=== PATIENT | female | born 1935 | race Caucasian/White ===

== ENCOUNTER → 2019-11-30 14:38 | Outpatient (CLI) | payer OTHER, SELFPAY ==
--- NOTE | ~2019-11-30 | XR_ITS ---
XR chest 2V 11/30/2019 14:57 Indication: Cough and dyspnea Procedure: 2 view chest Comparison: 09/03/2017 Findings: Heart size normal. No focal air space disease, pulmonary edema, pleural effusion or suspect ed pneumothorax. There is breast asymmetry suggesting left mastectomy. Correlate clinically. The lung s are hyperinflated which is consistent with, but not diagnostic of chronic obstructive pulmonary dis ease. Impression: 1: No acute cardiopulmonary disease. Reviewed, dictated and finalized at location A. Impression: 1: No acute cardiopulmonary disease.
== END ==
PROVIDERS: PCP Physician Assistant; Visit Provider Physician Assistant
DX: R05 Cough (principal)
CPT/HCPCS: 71046

== ENCOUNTER 2020-01-18 20:54 | Inpatient (IN) | payer OTHER, SELFPAY ==
--- NOTE | ~2020-01-18 | XR_ITS ---
EXAMINATION: XR chest 1V portable EXAM DATE: 01/18/2020 22:33 INDICATION: Fall, chest wall pain. TECHNIQUE: Portable AP frontal chest x-ray was obtained. Comparison is made to prior examination from 11/30/2019. FINDINGS: Some chronic hyperinflation. Right middle lobe granulomas, left infrahilar granulomas. The lungs are otherwise clear. There are no pleural effusions. The cardiomediastinal silhouette is with in normal limits. There is no pneumothorax suspected. Mild thoracolumbar scoliosis. IMPRESSION: No acute cardiopulmonary findings. Reviewed, dictated and finalized at location A.
--- NOTE | ~2020-01-18 | XR_ITS ---
EXAMINATION: XR hip LT 2V w AP pelvis EXAM DATE: 01/18/2020 22:34 INDICATION: Fall, left hip fracture. TECHNIQUE: Left hip frontal, crosstable lateral projections for interpretation. Frontal projection pe lvis. There is no prior study for comparison. FINDINGS: There is acute comminuted left hip intertrochanteric fracture with mild medial angulation. Closed, posttraumatic fracture(s). There is overlying soft tissue swelling. Intact right hip arthro plasty. Pelvic ring appears intact. IMPRESSION: 1. Acute comminuted left hip intertrochanteric fracture. Reviewed, dictated and finalized at location A.
--- NOTE | ~2020-01-18 | XR_ITS ---
XR surgery orthopedic 01/19/2020 16:08 Indication: Intraoperative fixation of left femoral fracture with intramedullary felicity Procedure: 4 fluoroscopic images of the left hip/femur. 281 seconds of fluoroscopy. Comparison: 01/18/2020 Findings: Status post intraoperative fixation of comminuted left femoral intertrochanteric fracture w ith dynamic compression screw and intramedullary felicity. Fracture fragments in near-anatomic alignment w ith persistent medial displacement of the lesser trochanter. Impression: 1: Near-anatomic alignment of comminuted left femoral intertrochanteric fracture status post intraope rative fixation. Reviewed, dictated and finalized at location A. Impression: 1: Near-anatomic alignment of comminuted left femoral intertrochanteric fractur e status post intraoperative fixation.
[2020-01-18 20:53] VITALS: BP 129/91; PULSE 80; RESP 16; TEMP 36.7; O2SAT 100
--- NOTE | 2020-01-18 21:04 | ECG_ITS ---
Measurements Intervals [place] Rate: 75 P: 78 RI: 175 QRS: -26 QRSD: 94 T: 72 QT: 359 QTc: 401 Interpretive Statements SINUS RHYTHM DELAYED PRECORDIAL R/S TRANSITION BORDERLINE ECG Electronically Signed On 01-19-2020 7:05:06 CDT by Abel Bustos D.O.
--- NOTE | 2020-01-18 21:10 | ED.FALL ---
HPI - Fall General Chief Complaint: Fall Stated Complaint: fall Time Seen by Provider: 01/18/20 20:55 Source: patient History of Present Illness HPI Narrative: Pt c/o left hip pain after she tripped and fell at home. Denies head, neck, chest, abd, back, or any other extremity pain/injury. complaint: fall Place fall occurred: home Loss of consciousness: none Prolonged down time: no Symptoms prior to fall: none Context: tripped/slipped Severity: severe Severity scale (1-10): 9 Quality: dull Associated symptoms (after fall): denies Related Data Home Medications Medication Instructions Recorded Confirmed Chelated Manganese 10 mg PO DAILY 10/07/19 01/19/20 Chromium 200 mcg PO DAILY 10/07/19 01/19/20 Glucosamine Chondroitin 100 mg PO DAILY 10/07/19 01/19/20 folic acid 1 mg PO DAILY 10/07/19 01/19/20 hydroxychloroquine 200 mg PO DAILY 10/07/19 01/19/20 quetiapine 25 mg PO HS 10/07/19 01/19/20 simvastatin 20 mg PO HS 10/07/19 01/19/20 temazepam 30 mg PO 10/07/19 01/19/20 albuterol sulfate 2 inh INHALATION QID 01/19/20 01/19/20 ascorbic acid (vitamin C) 200 mg PO DAILY 01/19/20 01/19/20 aspirin [Enteric Coated Aspirin] 1 mg PO DAILY 01/19/20 01/19/20 calcium carb and citrate-vitD3 2 tablet PO DAILY 01/19/20 01/19/20 cholestyramine (with sugar) 4 g PO TID 01/19/20 01/19/20 duloxetine 30 mg PO DAILY 01/19/20 01/19/20 magnesium oxide 200 mg PO DAILY 01/19/20 01/19/20 melatonin 10 mg PO HS 01/19/20 01/19/20 jixczcnznvhg-yik-pena-FA-vit K 1 tablet PO DAILY 01/19/20 01/19/20 [Adults Multivitamin] niacin 100 mg PO DAILY 01/19/20 01/19/20 turmeric-turmeric root extract 500 cap PO DAILY 01/19/20 01/19/20 Allergies Allergy/AdvReac Type Severity Reaction Status Date / Time No Known Allergies Allergy Verified 01/18/20 21:06 Review of Systems Review of Systems: All systems reviewed & are unremarkable except as noted in HPI and below Constitutional: Constitutional: Denies body ache(s), Denies chills, Denies excessive sweating, Denies fatigue, Denies fever(s), Denies headache(s), Denies lethargy, Denies malaise, Denies weakness and Denies weight loss Eyes: Eyes: Denies blurry vision, Denies change in vision and Denies loss of vision ENT: Denies dizziness, Denies ear discharge, Denies headache(s), Denies lip swelling, Denies epistaxis, Denies nasal congestion, Denies neck pain, Denies throat swelling and Denies tongue swelling Cardiovascular: Cardiovascular: Denies chest pain, Denies chest pain at rest, Denies chest pain with activity, Denies diaphoresis, Denies rapid heart rate, Denies edema, Denies irregular heart rhythm, Denies lightheadedness, Denies palpitations, Denies dyspnea and Denies dyspnea on exertion Respiratory: Respiratory: Denies chest congestion, Denies cough, Denies hemoptysis, Denies dyspnea and Denies dyspnea on exertion Gastrointestinal: Gastrointestinal: Denies abdominal pain, Denies melena, Denies hematochezia, Denies diarrhea, Denies nausea, Denies vomiting and Denies hematemesis Musculoskeletal: Musculoskeletal: Denies abnormal gait, Denies deformity, Denies limited range of motion, Denies neck pain and Denies numbness Neurologic: Denies Abnormal speech present, Denies abnormal gait, Denies confusion, Denies dizziness, Denies headache(s), Denies focal weakness, Denies loss of vision, Denies numbness, Denies Other visual disturbances, Denies Sensory deficit (Neuro) and Denies weakness Psychiatric: Psychiatric: Denies confusion, Denies depression, Denies auditory hallucinations, Denies homicidal ideation and Denies suicidal ideation Endocrine: Endocrine: Denies cold intolerance, Denies excessive sweating, Denies fatigue, Denies heat intolerance and Denies palpitations Hematologic/Lymphatic: Hematologic/Lymphatic: Denies easy bleeding and Denies easy bruising Allergic/Immunologic: Allergic/Immunologic: Denies lip swelling, Denies throat swelling and Denies tongue swelling PMFSH Past Medical History Medical Hi
[2020-01-18] MEDS: HYDROMORPHONE HCL 1 MG/ML INJ 0.5 MG IV PUSH (21:15)
[2020-01-18] MEDS: LACTATED RINGERS 1,000 ML 125 ML IV CONT (21:15)
--- NOTE | 2020-01-18 21:16 | PC.NURSE ---
50mL Normal saline pulled for Phenergan dilution, however, patient refused Phenergan administration.
[2020-01-18 21:38] LABS: Basophils Percent Auto 0.5 % (0.2-1.2); Eosinophils Absolute Auto 0.4 K/mm3 (0-0.3); Eosinophils Percent Auto 4.9 % (0-4.4); Hematocrit 38.7 % (37.0-47.0); Hemoglobin 12.7 g/dL (12.0-15.0); Immature Granulocyte Absolute 0.06 K/mm3 (0.00-0.031); Immature Granulocyte Percent A 0.7 % (0-0.5); Lymphocytes Absolute Auto 2.31 K/mm3 (0.9-3.2); Lymphocytes Percent Auto 26.4 % (18.3-44.2); Mean Corpuscular HGB Conc 32.8 g/dl (32-36); Mean Corpuscular Hemoglobin 31.4 pg (26-34); Mean Corpuscular Volume 95.8 fl (80-100); Mean Platelet Volume 9.4 fl (7.4-10.4); Monocytes Absolute Auto 0.9 K/mm3 (0.1-0.6); Monocytes Percent Auto 10.4 % (2.6-8.5); Neutrophils Percent Auto 57.1 % (45.5-73.1); Platelet Count Result 213 k/mm3 (150-375); Red Blood Count 4.04 M/mm3 (4.2-5.4); Red Cell Distribution Width 13.3 % (11.5-14.5); White Blood Count 8.8 K/mm3 (4.5-10.0)
[2020-01-18 21:45] VITALS: TEMP 36.7
[2020-01-18 21:49] LABS: Alanine Aminotransferase 20 U/L (4-35); Albumin Level 4.4 g/dL (3.5-5.1); Alkaline Phosphatase 70 U/L (38-126); Aspartate Amino Transferase 40 U/L (14-36); Bilirubin,Total 0.2 mg/dL (0.2-1.3); Blood Urea Nitrogen 13 mg/dL (7-17); Calcium 9.5 mg/dL (8.4-10.2); Carbon Dioxide 30 mmol/L (22-30); Chloride 94 mmol/L (98-107); Estimated Glomerular Filt Rate > 60; Glucose 102 mg/dL (65-105); INR 0.9; Potassium 3.9 mmol/L (3.4-5.0); Prothrombin Time 12.2 Seconds (11.1-14.7); Sodium 130 mmol/L (137-145)
[2020-01-18 21:50] LABS: Partial Thromboplastin Time 30.8 SECONDS (22.3-36.8)
[2020-01-18 22:55] VITALS: BP 129/98; PULSE 80; RESP 14; O2SAT 100
[2020-01-19] VITALS (21 sets, daily range): BP systolic 80–136; BP diastolic 46–75; PULSE 79–121; RESP 14–22; TEMP 36.2–37.1; O2SAT 92–100; BMI 24.5
[2020-01-19] MEDS: HYDROMORPHONE HCL 1 MG/ML INJ 0.5 MG IV PUSH ×4 (00:24→20:26)
--- NOTE | 2020-01-19 02:01 | ADMGEN ---
This patient, Sherri Montes, was admitted to [facility] Surg Room 317-01. Patient/family oriented to hospital policies and general routines including ID bracelet, bed and alarms, visiting hours, pain management, procedures, bathroom and other care routines, personal items, smoking policy, room service/diet, and visiting hours. Valuables list has been completed. Information on how to activate the Rapid Response Team has been discussed. Patient/Family are encouraged to report perceived risks to care and to ask questions if they do not understand what they are told or what they should do.
--- NOTE | 2020-01-19 04:50 | PM.IMHP ---
H&P: HPI History of Present Illness Chief complaint: CLOSED LEFT HIP INTERTROCH FRACTURE Narrative: This is an 84 year old female with Rheumaotid arthritis who presented to the hospital tonight after suffering a fall at home. She states she was walking when suddenly she fell. She denies any head trauma, passing out, or dizziness. The patient immediately could not ambulate. On arrival to the ER she was found to have a left intertrochanteric fracture. She has no other complaints. Ortho has asked that we admit the patient to the hospital and they will evaluate her in the morning. Review of Systems Review of Systems: All systems reviewed & are unremarkable except as noted in HPI and below PMFSH Past Medical History Medical History Anxiety Arthritis Bilateral cataracts Depression Diverticulitis GERD (gastroesophageal reflux disease) Hypercholesteremia IBS (irritable bowel syndrome) Lupus Osteoporosis Pneumonia 2018 Postmenopausal Rectal polyp Rheumatoid arthritis Surgical History Surgical History H/O mastectomy Left breast, with lymph nodes removed Hip joint replacement status Right hip 2010 History of orthopedic surgery Right ankle repair Hx of tonsillectomy Family History Family History Other Unknown family medical history Social History Social History Smoking status: Never smoker Alcohol intake: current Drinks per week: 5 Substance use: never Gender identity (if verbalized by the patient): Female Spiritual care concerns: No Agree to blood products: Yes Meds Home Medications and Allergies Home Medications Medication Instructions Recorded Confirmed Type Chelated Manganese 10 mg PO DAILY 10/07/19 01/19/20 History Chromium 200 mcg PO DAILY 10/07/19 01/19/20 History Glucosamine Chondroitin 100 mg PO DAILY 10/07/19 01/19/20 History fluticasone propionate [Flonase 1 spray NASAL DAILY #15.8 ml 10/07/19 01/19/20 Rx Allergy Relief] folic acid 1 mg PO DAILY 10/07/19 01/19/20 History hydroxychloroquine 200 mg PO QID 10/07/19 01/19/20 History quetiapine 25 mg PO HS 10/07/19 01/19/20 History simvastatin 20 mg PO HS 10/07/19 01/19/20 History temazepam 30 mg PO HS 10/07/19 01/19/20 History albuterol sulfate 2 inh INHALATION QID 01/19/20 01/19/20 History ascorbic acid (vitamin C) 200 mg PO DAILY 01/19/20 01/19/20 History aspirin [Enteric Coated Aspirin] 1 mg PO DAILY 01/19/20 01/19/20 History calcium carb and citrate-vitD3 2 tablet PO DAILY 01/19/20 01/19/20 History cholestyramine (with sugar) 4 g PO TID 01/19/20 01/19/20 History duloxetine 30 mg PO DAILY 01/19/20 01/19/20 History magnesium oxide 200 mg PO DAILY 01/19/20 01/19/20 History melatonin 10 mg PO HS 01/19/20 01/19/20 History unnxfozslbag-cqq-tkwv-FA-vit K 1 tablet PO DAILY 01/19/20 01/19/20 History [Adults Multivitamin] niacin 100 mg PO DAILY 01/19/20 01/19/20 History turmeric-turmeric root extract 500 cap PO DAILY 01/19/20 01/19/20 History Allergies Allergy/AdvReac Type Severity Reaction Status Date / Time No Known Allergies Allergy Verified 01/18/20 21:06 Vital Signs Vital Signs - 24 hr 01/18/20 20:53 01/18/20 21:45 01/18/20 22:55 Temperature 36.7 C 36.7 C Pulse Rate 80 80 Respiratory Rate 16 14 Blood Pressure 129/91 H 129/98 H Pulse Oximetry 100 100 01/19/20 00:16 01/19/20 01:20 Temperature 36.6 C Pulse Rate 80 79 Respiratory Rate 14 16 Blood Pressure 118/66 121/71 Pulse Oximetry 96 96 Exam Const: General: cooperative, no acute distress, alert and awake Nutritional Appearance: well nourished Orientation/consciousness: patient oriented x3 HENMT: Head: normal to inspection General nose exam: Normal external nose present Face and sinus: normal facial exam Mouth: Yes Normal o
[2020-01-19] MEDS: LACTATED RINGERS 1,000 ML 125 ML IV CONT (05:49)
--- NOTE | 2020-01-19 07:38 | PC.NURSE ---
Patient was given Dilaudid IVP 0.5ml at 0558 01/19/2020, scanned med was not saved at that time. Attempted to chart put medication is now discontinued.
[2020-01-19] MEDS: ALBUTEROL SULFATE (*SP) AEROSOL 1 PUFF 2 PUFF INHALATION ×2 (08:37→19:17)
--- NOTE | 2020-01-19 11:57 | PC.NURSE ---
Patient to OR per bed.
--- NOTE | 2020-01-19 12:02 | WPDANESEPPF ---
Anes - Initial Pre Proc Eval Procedure: Operation Date: 01/19/20 14:30 Proposed Procedures p Left Intertrochanteric Nail(Left) - Cristiano Chung MD Date/Time: 01/19/20 12:02 Surgeon: Brittany Franco PA-C Pre Op Diagnosis: CLOSED LEFT HIP INTERTROCH FRACTURE Patient Data Age: 84 Gender: F Height: 5 ft 2 in Weight: 60.7 kg Last Vital Signs Temp 36.3 C L 01/19/20 06:00 Pulse 79 01/19/20 08:40 Resp 18 01/19/20 08:40 BP 123/70 01/19/20 06:00 Pulse Ox 96 01/19/20 06:00 Allergies Allergy/AdvReac Type Severity Reaction Status Date / Time No Known Allergies Allergy Verified 01/18/20 21:06 Home Medications Medication Instructions Recorded Confirmed Type Chelated Manganese 10 mg PO DAILY 10/07/19 01/19/20 History Chromium 200 mcg PO DAILY 10/07/19 01/19/20 History Glucosamine Chondroitin 100 mg PO DAILY 10/07/19 01/19/20 History fluticasone propionate [Flonase 1 spray NASAL DAILY #15.8 ml 10/07/19 01/19/20 Rx Allergy Relief] folic acid 1 mg PO DAILY 10/07/19 01/19/20 History hydroxychloroquine 200 mg PO DAILY 10/07/19 01/19/20 History quetiapine 25 mg PO HS 10/07/19 01/19/20 History simvastatin 20 mg PO HS 10/07/19 01/19/20 History temazepam 30 mg PO HS 10/07/19 01/19/20 History albuterol sulfate 2 inh INHALATION QID 01/19/20 01/19/20 History ascorbic acid (vitamin C) 200 mg PO DAILY 01/19/20 01/19/20 History aspirin [Enteric Coated Aspirin] 1 mg PO DAILY 01/19/20 01/19/20 History calcium carb and citrate-vitD3 2 tablet PO DAILY 01/19/20 01/19/20 History cholestyramine (with sugar) 4 g PO TID 01/19/20 01/19/20 History duloxetine 30 mg PO DAILY 01/19/20 01/19/20 History magnesium oxide 200 mg PO DAILY 01/19/20 01/19/20 History melatonin 10 mg PO HS 01/19/20 01/19/20 History ustciuzniqsb-wvb-rmei-FA-vit K 1 tablet PO DAILY 01/19/20 01/19/20 History [Adults Multivitamin] niacin 100 mg PO DAILY 01/19/20 01/19/20 History turmeric-turmeric root extract 500 cap PO DAILY 01/19/20 01/19/20 History Laboratory Tests 01/18/20 01/18/20 01/18/20 21:30 21:30 21:30 WBC 8.8 K/mm3 K/mm3 (4.5-10.0) RBC 4.04 M/mm3 L M/mm3 (4.2-5.4) Hgb 12.7 g/dL g/dL (12.0-15.0) Hct 38.7 % % (37.0-47.0) MCV 95.8 fl fl (80-100) MCH 31.4 pg pg (26-34) MCHC 32.8 g/dl g/dl (32-36) RDW 13.3 % % (11.5-14.5) Plt Count 213 k/mm3 k/mm3 (150-375) MPV 9.4 fl fl (7.4-10.4) Immature Gran % (Auto) 0.7 % H % (0-0.5) Neut % (Auto) 57.1 % % (45.5-73.1) Lymph % (Auto) 26.4 % % (18.3-44.2) [place] % (Auto) 10.4 % H % (2.6-8.5) Eos % (Auto) 4.9 % H % (0-4.4) Baso % (Auto) 0.5 % % (0.2-1.2) Lymph # (Auto) 2.31 K/mm3 K/mm3 (0.9-3.2) [place] # (Auto) 0.9 K/mm3 H K/mm3 (0.1-0.6) Eos # (Auto) 0.4 K/mm3 H K/mm3 (0-0.3) Baso # (Auto) 0.0 K/mm3 K/mm3 (0.0-0.1) Abs Immat Gran (auto) 0.06 K/mm3 H K/mm3 (0.00-0.031) Absolute Neuts (auto) 5.0 K/mm3 K/mm3 (1.3-6.7) Absolute Nucleated RBC 0.0 K/mm3 K/mm3 (0.0-0.012) Nucleated RBC % 0.0 % % (0.0-0.2) PT 12.2 Seconds Seconds (11.1-14.7) INR 0.9 APTT 30.8 SECONDS SECONDS (22.3-36.8) Sodium 130 mmol/L L mmol/L (137-145) Potassium 3.9 mmol/L mmol/L (3.4-5.0) Chloride 94 mmol/L L mmol/L (98-107) Carbon Dioxide 30 mmol/L mmol/L (22-30) BUN 13 mg/dL mg/dL (7-17) Creatinine 0.60 mg/dL L mg/dL (0.7-1.0) Estim Creat Clear Calc Not Reportable Estimated GFR > 60 (59 - ) Glucose 102 mg/dL mg/dL (65-105) Calcium 9.5 mg/dL mg/dL (8.4-10.2) Total Bilirubin 0.2 mg/dL mg/dL (0.2-1.3) AST 40 U/L H U/L (14-36) ALT 20 U/L U/L (4-35) Alkaline Phosphatase
[2020-01-19] MEDS: LACTATED RINGERS 1,000 ML 30 ML IV CONT ×3 (13:00→16:45)
--- NOTE | 2020-01-19 13:31 | PCRCNOTE ---
1200 - pt MAGALY. 1245 - pt MAGALY 1330 - pt in surgery. No MDI given at this time.
--- NOTE | 2020-01-19 13:41 | PM.IMPN ---
Progress Note: A&P Assessment and Plan (1) Closed intertrochanteric fracture of left hip: Qualifiers: Encounter type: initial encounter Fracture alignment: displaced Qualified Code(s): S72.142A - Displaced intertrochanteric fracture of left femur, initial encounter for closed fracture Code(s): S72.142A - Displaced intertrochanteric fracture of left femur, initial encounter for closed fracture Status: Acute Assessment and Plan: Patient had a fall at home and was found to have a left intertrochanteric fracture. Patient was admitted and placed NPO overnight with IV pain medications and IV fluids. Patient is an increased pain at this time but is due for some pain medications. Dr. Chung was consulted and the patient is scheduled for surgery today at 1:00 p.m.. Will continue monitoring patient's symptoms. Dr. Chung will monitor the patient's pain, DVT prophylaxis postop, physical and occupational therapy and discharge plan. (2) Depression: Qualifiers: Depression Type: unspecified Qualified Code(s): F32.9 - Major depressive disorder, single episode, unspecified Code(s): F32.9 - Major depressive disorder, single episode, unspecified Status: Chronic Assessment and Plan: Will continue her home medications. (3) GERD (gastroesophageal reflux disease): Qualifiers: Esophagitis presence: esophagitis presence not specified Qualified Code(s): K21.9 - Gastro-esophageal reflux disease without esophagitis Code(s): K21.9 - Gastro-esophageal reflux disease without esophagitis Status: Chronic Assessment and Plan: Pepcid twice a day while hospitalized. (4) Hypercholesteremia: Code(s): E78.00 - Pure hypercholesterolemia, unspecified Status: Chronic Assessment and Plan: Will continue her simvastatin. (5) Lupus: Code(s): M32.9 - Systemic lupus erythematosus, unspecified Status: Chronic Assessment and Plan: Stable. Will continue her hydroxychloroquine which he takes once a day. (6) Osteoporosis: Qualifiers: Osteoporosis type: unspecified Presence of current pathological fracture: unspecified Qualified Code(s): M81.0 - Age-related osteoporosis without current pathological fracture Code(s): M81.0 - Age-related osteoporosis without current pathological fracture Status: Chronic (7) Rheumatoid arthritis: Qualifiers: Rheumatoid arthritis location: unspecified site Rheumatoid factor presence: unspecified presence Qualified Code(s): M06.9 - Rheumatoid arthritis, unspecified Code(s): M06.9 - Rheumatoid arthritis, unspecified Status: Chronic Assessment and Plan: Continue home medications. Time Spent With Patient Time with patient: 25 - 35 minutes Subjective Date/time seen: 01/19/20 13:41 Interval history: Date of service 01/19/2020: Patient is having lot of pain to her left hip and is about to receive new pain medications. She feels very anxious about her procedure today. She feels like she is having slight tremor since she did not receive her hydroxychloroquine this morning from her RA. She denies any chest pain, shortness of breath, cough, fever, chills, nausea, vomiting, abdominal pain, diarrhea, constipation, leg swelling, calf pain or any other symptoms at this time. Review of Systems Review of Systems: All systems reviewed & are unremarkable except as noted in HPI and below Exam Narrative: Exam Narrative: General: 84-year-old woman laying flat in bed. Appears comfortable but anxious. In no acute distress. Skin: No jaundice or cyanosis. Good skin turgor. Neck: Full
[2020-01-19] MEDS: ceFAZolin 2 GM/D5W 50 ML 2 GM/50 ML BAG IVPB ×2 (14:14→20:17)
--- NOTE | 2020-01-19 15:40 | HP_ITS ---
DATE OF SERVICE: 01/19/2020 HISTORY OF PRESENT ILLNESS: This is an 84-year-old female who fell on her left side. She presented to the emergency department. She was diagnosed with a left subtrochanteric femur fracture and she was then sent to the orthopedic floor and Medical Services were consulted. She has a history of rheumatoid arthritis. She has had multiple lower extremity surgeries including right hip fracture. She currently only complains of left thigh pain and hip pain. Denies any back pain. Denies any neck pain. Denies any other right lower extremity pain aside from chronic pain that she has had, but no new pain in the right lower extremity. Denies any upper extremity pain. PAST MEDICAL HISTORY: Anxiety, arthritis, cataracts, depression, diverticulitis, GERD, hypercholesterolemia, irritable bowel syndrome, lupus, osteoporosis, pneumonia, rectal polyps, rheumatoid arthritis. SURGICAL HISTORY: Hip joint replacement due to fracture of the right hip, right ankle open reduction and internal fixation, tonsillectomy. SOCIAL HISTORY: She lives on her own. She does not smoke. She does take alcohol on occasion. MEDICATIONS: 1. Manganese. 2. Chromium. 3. Glucosamine. 4. Folic acid. 5. Hydroxychloroquine. 6. Simvastatin. 7. Temazepam. 8. Albuterol. 9. Vitamin C. 10. Aspirin. 11. Calcium. 12. Cholestyramine. 13. Duloxetine. 14. Magnesium. 15. Melatonin. 16. Niacin. 17. Turmeric. ALLERGIES: NONE. PHYSICAL EXAMINATION: Left hip was examined. She has obvious thigh swelling. She has shortening of the left lower extremity. She is able to dorsi and plantar flex left foot. She has no tenderness of the knee. She has no tenderness in tib-fib. The calf is nontender. She has negative Homans sign. She is able to dorsi and plantar flex left foot without any difficulty. She has dorsalis pedis +2, posterior tib pulse 2+. Left hip was examined. She has an old healed scar in the hip region. She has no pain with passive motion of the left hip. She has no thigh tenderness. She has no knee tenderness. She has good motion of the knee and there is no instability. She has no tib-fib tenderness or calf tenderness. The right ankle has some obvious hardware that is protruding from the skin, but there is no tear in the skin and she has a well-healed scar. She has no sign of infection. She has good dorsi and plantar flexion of the foot as far as strength is concerned. Her sensation is intact. Dorsalis pedis pulse 2+, posterior tib pulse 2+. Upper extremities evaluation, she elevates both upper extremities. She has no tenderness in the clavicle, shoulders, arms, elbows, forearms, wrists and hands. Neck is nontender. Thoracic spine nontender. Lumbar spine nontender. Sacrococcygeal nontender. Sacroiliac region nontender. ASSESSMENT AND PLAN: X-ray show left subtrochanteric fracture with an intertrochanteric extension and no other fractures seen. Plan is for insertion of a long gamma nail with distal locking. We discussed the risks and complications of the surgery. I spoke to her granddaughter as well and we discussed the possibility of PE, DVT, infection, re-fracturing, intraoperative fracture, the risk of leg length discrepancy. Currently, leg length discrepancy is unknown. She states that the right lower extremity was longer than the left lower extremity prior to her fall due to previous surgery. We will try and restore her pre-injury leg length. We also discussed the possibility of further surgery if she develops an infection or if she has any other trauma. She understands that. We will go ahead and proceed once she is cleared by Medicine Services. Cristina I MT: Ulises
--- NOTE | 2020-01-19 17:01 | OP_ITS ---
DATE OF PROCEDURE: 01/19/2020 PREOPERATIVE DIAGNOSIS: Left intertrochanteric and subtrochanteric femur fracture. POSTOPERATIVE DIAGNOSIS: Left intertrochanteric and subtrochanteric femur fracture. PROCEDURE PERFORMED: Insertion of intramedullary felicity, left femur with hip screw. SURGEON: Cristiano Chung MD. ANESTHESIA: General. COMPLICATIONS: None. INDICATIONS: This is an 84-year-old female who fell sustaining a fracture to the intertrochanteric and subtrochanteric region of the left femur. She was indicated for insertion of IM felicity with intramedullary hip screw. DESCRIPTION OF PROCEDURE: The patient was taken to the operating room in stable condition, placed in supine position. General anesthesia was induced and then she was placed on the fracture table, and using traction and some rotation, the fracture fragments were reduced to near-anatomic position. The left lower extremity then was prepped and draped sterilely from the mid calf to the iliac crest. Incision was made just proximal to the greater trochanter down to the subcutaneous tissues and then down to the fascia. The fascia was incised and the greater trochanter was identified. A guide pin was placed in the greater trochanter into the medullary canal of the femur. A preliminary drill was used to ream over the guide pin. Once that was performed, then a Scicasts intramedullary felicity measuring 340 mm in length and with a 125-degree angle and 10 mm diameter was placed through the guide pin and into medullary canal bridging the fracture fragments. The felicity was just shy of the tip of the proximal pole of the patella and was in alignment with the femoral neck. Once that was performed, then a guide pin was placed through the femoral neck and just shy of the subchondral bone measuring 85 mm in length. This was checked both in the AP and lateral planes, was found to be in good position. A drill for the lag screw then was performed and then the lag screw was placed over the guide pin and just shy of the subchondral bone. It was locked proximally with a static screw and then once that was performed another incision was made at the distal end of the thigh just at the distal locking screw under fluoroscopic guidance and then using the standard fashion a drill was placed for the distal locking screw and then a 47.5 distal locking screw was placed through the intramedullary canal and into the medial cortex of the femur. Prior to this, the lengths were checked and the rotation of the femur was back to neutral. The screw then was checked on fluoroscopy, found to be in good position, both in the AP and lateral planes. Next, the traction was removed from the lower extremity. The wounds were irrigated thoroughly with sterile water. Deep fascial layers were approximated with #0 Vicryl suture, subcutaneous with 2-0 Vicryl and the skin was approximated with 3-0 Quill and then Dermabond was placed. Sterile dressings were applied. The patient was extubated, sent to Recovery. Cristina I MT: Ulises
[2020-01-19 18:48] LABS: Basophils Percent Auto 0.1 % (0.2-1.2); Eosinophils Percent Auto 0.1 % (0-4.4); Hematocrit 26.1 % (37.0-47.0); Hemoglobin 8.6 g/dL (12.0-15.0); Immature Granulocyte Absolute 0.05 K/mm3 (0.00-0.031); Immature Granulocyte Percent A 0.3 % (0-0.5); Lymphocytes Percent Auto 10.4 % (18.3-44.2); Mean Corpuscular Hemoglobin 31.4 pg (26-34); Mean Corpuscular Volume 95.3 fl (80-100); Monocytes Absolute Auto 0.6 K/mm3 (0.1-0.6); Neutrophils Absolute Auto 12.2 K/mm3 (1.3-6.7); Neutrophils Percent Auto 85.1 % (45.5-73.1); Platelet Count Result 174 k/mm3 (150-375); Red Blood Count 2.74 M/mm3 (4.2-5.4); Red Cell Distribution Width 13.8 % (11.5-14.5); White Blood Count 14.4 K/mm3 (4.5-10.0)
[2020-01-19 19:00] LABS: Alanine Aminotransferase 18 U/L (4-35); Albumin Level 3.4 g/dL (3.5-5.1); Alkaline Phosphatase 55 U/L (38-126); Aspartate Amino Transferase 37 U/L (14-36); Bilirubin,Total 0.5 mg/dL (0.2-1.3); Blood Urea Nitrogen 11 mg/dL (7-17); Calcium 8.5 mg/dL (8.4-10.2); Carbon Dioxide 23 mmol/L (22-30); Chloride 103 mmol/L (98-107); Estimated CRCL calculation 57 ml/min; Estimated Glomerular Filt Rate > 60; Glucose 136 mg/dL (65-105); Potassium 4.3 mmol/L (3.4-5.0); Sodium 133 mmol/L (137-145); Uric Acid 3.3 mg/dL (2.5-7.5)
[2020-01-19] MEDS: KCL 20 MEQ/D5/0.45% SOD CHL 1,000 ML 80 ML IV CONT (20:09)
[2020-01-19] MEDS: TEMAZEPAM 15 MG CAPSULE 30 MG PO (20:17)
[2020-01-19] MEDS: MELATONIN 5 MG TABLET 10 MG PO (20:17)
[2020-01-19] MEDS: SIMVASTATIN 20 MG TABLET PO (20:17)
--- NOTE | 2020-01-19 20:31 | ECG_ITS ---
Measurements Intervals [place] Rate: 127 P: 51 IN: 151 QRS: -16 QRSD: 89 T: 72 QT: 302 QTc: 439 Interpretive Statements SINUS TACHYCARDIA DELAYED PRECORDIAL R/S TRANSITION LEFT VENTRICULAR HYPERTROPHY AND ST-T CHANGE BORDERLINE ECG Electronically Signed On 01-20-2020 7:15:15 CDT by Abel Bustos D.O.
[2020-01-19] MEDS: NITROGLYCERIN SL 0.4 MG TABLET (20:48)
[2020-01-19 21:21] LABS: Hematocrit 24.8 % (37.0-47.0); Hemoglobin 8.2 g/dL (12.0-15.0)
[2020-01-19 21:32] LABS: Magnesium 1.6 mg/dL (1.6-2.3); Potassium 4.1 mmol/L (3.4-5.0)
[2020-01-19 21:44] LABS: Troponin I < 0.012 ng/mL (0.000-0.034)
[2020-01-19] MEDS: SODIUM CHLORIDE 0.9% IV 500 ML 999 ML IV CONT (22:00)
--- NOTE | 2020-01-19 23:22 | PC.NURSE ---
2024 Patient called for RN to come to room, patient c/o chest pain, HR 140, c/o sob. vital signs taken and documented by BINDER FOLDER OPERATOR. Dr Frausto notified of change in patient's condition 2035 12 lead EKG completed and Dr Frausto at bedside, orders received for NTG SL and labs.
--- NOTE | 2020-01-19 23:26 | PC.NURSE ---
2047 SL NTG given. 2054 pt denies any c/o discomfort, pain gone 2149 low BP, Dr Frausto aware and orders received. 2299 bp improved. see vitals signs, sitter at bedside.
--- NOTE | 2020-01-19 23:28 | PC.NURSE ---
2150 pt removed IV. RN started new one. QUANTITATIVE RESEARCH ANALYST at bedside while RN out of room. Sitter requested and obtained.
[2020-01-20] VITALS (10 sets, daily range): BP systolic 98–128; BP diastolic 48–83; PULSE 72–105; RESP 16–18; TEMP 36.3–36.9; O2SAT 88–100
[2020-01-20] MEDS: FAMOTIDINE 20 MG TABLET PO ×2 (02:16→20:52)
[2020-01-20] MEDS: QUEtiapine FUMARATE 25 MG TABLET PO (02:16)
[2020-01-20] MEDS: ceFAZolin 2 GM/D5W 50 ML 2 GM/50 ML BAG IVPB ×2 (05:32→16:44)
[2020-01-20 06:12] LABS: Basophils Percent Auto 0.1 % (0.2-1.2); Immature Granulocyte Absolute 0.05 K/mm3 (0.00-0.031); Immature Granulocyte Percent A 0.5 % (0-0.5); Immature Platelet Fraction Pct 2.5 % (0.9-11.2); Lymphocytes Absolute Auto 1.22 K/mm3 (0.9-3.2); Lymphocytes Percent Auto 11.6 % (18.3-44.2); Mean Corpuscular HGB Conc 32.7 g/dl (32-36); Mean Corpuscular Hemoglobin 31.9 pg (26-34); Mean Corpuscular Volume 97.6 fl (80-100); Mean Platelet Volume 10.4 fl (7.4-10.4); Monocytes Absolute Auto 1.3 K/mm3 (0.1-0.6); Monocytes Percent Auto 12.2 % (2.6-8.5); Neutrophils Percent Auto 75.6 % (45.5-73.1); Platelet Count Result 128 k/mm3 (150-375); Red Cell Distribution Width 14.1 % (11.5-14.5); White Blood Count 10.5 K/mm3 (4.5-10.0)
[2020-01-20 06:13] LABS: Blood Urea Nitrogen 11 mg/dL (7-17); Calcium 8.1 mg/dL (8.4-10.2); Carbon Dioxide 24 mmol/L (22-30); Chloride 102 mmol/L (98-107); Estimated CRCL calculation 49 ml/min; Estimated Glomerular Filt Rate > 60; Glucose 161 mg/dL (65-105); Hemoglobin 6.7 g/dL (12.0-15.0); Potassium 4.5 mmol/L (3.4-5.0); Sodium 131 mmol/L (137-145)
[2020-01-20 06:14] LABS: Hematocrit 20.5 % (37.0-47.0)
[2020-01-20] MEDS: ALBUTEROL SULFATE (*SP) AEROSOL 1 PUFF 2 PUFF INHALATION ×2 (06:29→12:30)
[2020-01-20] MEDS: DOCUSATE SODIUM 100 MG CAPSULE PO ×2 (09:34→16:44)
[2020-01-20] MEDS: ASCORBIC ACID 250 MG TABLET PO (09:34)
[2020-01-20] MEDS: FONDAPARINUX SODIUM 2.5 MG/0.5 ML SYRINGE SUB-Q (09:34)
[2020-01-20] MEDS: FLUTICASONE PROPIONATE 0.05% NA SPR 16 GM BTL (*BKC) 1 SPRAY NASAL (09:34)
[2020-01-20] MEDS: FOLIC ACID 1 MG TABLET PO (09:34)
[2020-01-20] MEDS: NIACIN 100 MG TABLET PO (09:35)
[2020-01-20] MEDS: HYDROXYCHLOROQUINE SULFATE 200 MG TABLET PO (09:35)
[2020-01-20] MEDS: SODIUM CHLORIDE 0.9% IV 250 ML 30 ML IV CONT (09:38)
--- NOTE | 2020-01-20 10:16 | PCOTNOTE ---
OT attempted initial evaluation this morning. Nurse stated she just received her breakfast and to try again later. OT returned at 10:15 to re-attempt. Nurse stated patient was currently receiving blood and to try again later again.
--- NOTE | 2020-01-20 11:06 | PM.IMPN ---
Progress Note: A&P Assessment and Plan (1) Severe anemia: Code(s): D64.9 - Anemia, unspecified Status: Acute Assessment and Plan: Most likely secondary to IV fluid dilution and surgery. Patients H&H on arrival was 12.7/38.7%. Surgery checked H&H post-op hip surgery and H&H was 8.6/26%. This morning H&H was severely decreased with H&H at 6.7/20.5%. She received 1 Unit. We will continue monitoring H&H and transfuse as needed. (2) Closed intertrochanteric fracture of left hip: Qualifiers: Encounter type: initial encounter Fracture alignment: displaced Qualified Code(s): S72.142A - Displaced intertrochanteric fracture of left femur, initial encounter for closed fracture Code(s): S72.142A - Displaced intertrochanteric fracture of left femur, initial encounter for closed fracture Status: Acute Assessment and Plan: Patient had a fall at home and was found to have a left intertrochanteric fracture. Patient was admitted and placed NPO overnight with IV pain medications and IV fluids. Dr. Chung preformed insertion of intramedullary felicity, left femur with hip screw on 01/19/2020. POD #1, patient is having some pain at this time, but she just received some pain medications a little bit ago. Will continue monitoring patient's symptoms. Dr. Chung will monitor the patient's pain, DVT prophylaxis postop, physical and occupational therapy and discharge plan. (3) Depression: Qualifiers: Depression Type: unspecified Qualified Code(s): F32.9 - Major depressive disorder, single episode, unspecified Code(s): F32.9 - Major depressive disorder, single episode, unspecified Status: Chronic Assessment and Plan: Will continue her home medications. (4) GERD (gastroesophageal reflux disease): Qualifiers: Esophagitis presence: esophagitis presence not specified Qualified Code(s): K21.9 - Gastro-esophageal reflux disease without esophagitis Code(s): K21.9 - Gastro-esophageal reflux disease without esophagitis Status: Chronic Assessment and Plan: Pepcid twice a day while hospitalized. (5) Hypercholesteremia: Code(s): E78.00 - Pure hypercholesterolemia, unspecified Status: Chronic Assessment and Plan: Will continue her simvastatin. (6) Lupus: Code(s): M32.9 - Systemic lupus erythematosus, unspecified Status: Chronic Assessment and Plan: Stable. Will continue her hydroxychloroquine which he takes once a day. (7) Osteoporosis: Qualifiers: Osteoporosis type: unspecified Presence of current pathological fracture: unspecified Qualified Code(s): M81.0 - Age-related osteoporosis without current pathological fracture Code(s): M81.0 - Age-related osteoporosis without current pathological fracture Status: Chronic (8) Rheumatoid arthritis: Qualifiers: Rheumatoid arthritis location: unspecified site Rheumatoid factor presence: unspecified presence Qualified Code(s): M06.9 - Rheumatoid arthritis, unspecified Code(s): M06.9 - Rheumatoid arthritis, unspecified Status: Chronic Assessment and Plan: Continue home medications. Time Spent With Patient Time with patient: 25 - 35 minutes Subjective Date/time seen: 01/20/20 11:06 Interval history: Date of service 01/20/2020: She reports feeling better today after having surgery yesterday. She is sitting up in bed complaining of pain to her left hip but she recently took some pain meds. She has not worked with physical or occupational therapy yet. She has been eating and drinking w
--- NOTE | 2020-01-20 11:33 | PM.PNORT ---
Progress Note: A&P Assessment and Plan (1) Closed intertrochanteric fracture of left hip: Qualifiers: Encounter type: initial encounter Fracture alignment: displaced Qualified Code(s): S72.142A - Displaced intertrochanteric fracture of left femur, initial encounter for closed fracture Code(s): S72.142A - Displaced intertrochanteric fracture of left femur, initial encounter for closed fracture Status: Acute Assessment and Plan: Postoperative day 1. Left hip intertrochanteric fracture. Patient awake and alert. Overall pain well controlled. Postoperative acute anemia today. Transfusion started. PT / OT for left hip fracture. May need placement versus home with home health. Subjective Subjective Date/Time Seen: 01/20/20 11:33 Awake and alert. Complains of mild pain left hip and left leg swelling. Exam Const: General: healthy appearing; No in distress or confusion Orientation/consciousness: patient oriented x3 and No confusion HENMT: Head: normal to inspection, normocephalic and atraumatic Eyes: Conjunctivae: conjunctivae normal Sclera: sclerae normal Resp: Effort & Inspection: normal respiratory effort and no audible wheezes Neuro: General: patient oriented x3 and No confusion Extrem: Other: Left hip incision clean dry with dressing in place. Moderate left thigh swelling, muscle compartments soft. Able to move toes. Good sensation to touch throughout. Able to flex and extend ankle and toes. Palpable dorsalis pedis pulse and good capillary refill. Psych: Affect: normal affect Objective Data Vital Signs Vital Signs: Vital Signs - 24 hr 01/19/20 12:09 01/19/20 16:18 01/19/20 16:30 Temperature 98.8 F 97.4 F L Pulse Rate 82 110 H 84 Respiratory Rate 16 19 16 Blood Pressure 130/57 L 136/75 113/57 L Pulse Oximetry 99 99 96 01/19/20 16:45 01/19/20 17:00 01/19/20 17:15 Temperature Pulse Rate 86 88 95 Respiratory Rate 19 14 18 Blood Pressure 119/64 122/55 L 119/66 Pulse Oximetry 97 96 92 01/19/20 17:20 01/19/20 17:30 01/19/20 17:45 Temperature Pulse Rate 98 94 94 Respiratory Rate 18 16 16 Blood Pressure 110/69 114/55 L 112/51 L Pulse Oximetry 94 95 100 01/19/20 18:15 01/19/20 19:15 01/19/20 19:24 Temperature 98.7 F Pulse Rate 87 103 H 80 Respiratory Rate 16 16 18 Blood Pressure 115/61 109/58 L Pulse Oximetry 100 97 01/19/20 20:47 01/19/20 20:49 01/19/20 21:59 Temperature 97.2 F L Pulse Rate 121 H 98 109 H Respiratory Rate 22 H 16 Blood Pressure 124/64 80/50 L Pulse Oximetry 98 95 01/19/20 22:30 01/19/20 23:14 01/20/20 02:00 Temperature 98.0 F Pulse Rate 100 90 Respiratory Rate 16 16 Blood Pressure 100/50 L 105/46 L 103/63 Pulse Oximetry 98 92 01/20/20 06:00 01/20/20 08:00 01/20/20 09:25 Temperature 98.0 F 97.8 F 97.4 F L Pulse Rate 89 105 H 84 Respiratory Rate 16 18 16 Blood Pressure 98/48 L 107/58 L 108/57 L Pulse Oximetry 96 97 96 01/20/20 09:40 Temperature 98.3 F Pulse Rate 88 Respiratory Rate 16 Blood Pressure 115/68 Pulse Oximetry 98 Intake/Output Intake/Output: Intake & Output 01/17/20 01/18/20 01/19/20 01/20/20 23:59 23:59 23:59 23:59 Intake Total 3150 896 Output Total 1100 350 Balance 2050 546 Meds/Results Medications: Active Medications Generic Name Dose Route Start Last Admin Trade Name Freq PRN Reason Stop Dose Admin Hydrocodone Bitart/Acetaminophen 1 tab 01/19/20 15:58 [place] 7.5-325 Mg PO Q3H PRN Pain Rated 4-6 Albuterol 2 puff 01/19/20 08:00 01/20/20 08:06 Proventil Hfa INHALATION Not Given QIDRT [facility] Ascorbic Acid 250 mg 01/20/20 09:00 01/20/20 09:34 Vitamin C PO 02/19/20 09:01 250 mg DAILY JOEY Administration Aspirin 81 mg 01/20/20 21:00 Aspirin Ec PO HS [facility] Calcium Citrate 2 tablet 01/20/20 12:00 Calcitrate + Vit D Caplet PO DAILY@1200 [facility] Cholestyramine Resin 4 gm 01/19/20 17:00 01/20/20 0
[2020-01-20] MEDS: MAGNESIUM OXIDE 200 MG TABLET PO (12:29)
[2020-01-20] MEDS: SIMETHICONE 80 MG TAB.CHEW PO ×3 (12:30→20:52)
[2020-01-20] MEDS: MAGNESIUM SULFATE 3GM/D5W100ML 3 GM/100 ML BAG IVPB (12:51)
[2020-01-20 14:36] LABS: Hematocrit 23.1 % (37.0-47.0); Hemoglobin 7.3 g/dL (12.0-15.0)
--- NOTE | 2020-01-20 16:58 | WPDANESPN ---
Anes - Prog Note Post-Op Date/Time: 01/20/20 16:58 Cardiovascular status: normal Respiratory status: normal Airway patency: baseline Mental status: baseline Post-Op hydration status: normal Vital Signs: Last Vital Signs Temp 97.8 F 01/20/20 14:00 Pulse 83 01/20/20 14:00 Resp 18 01/20/20 14:00 BP 108/53 L 01/20/20 14:00 Pulse Ox 96 01/20/20 14:00 I/O: Intake & Output 01/20/20 01/20/20 01/20/20 07:59 15:59 23:59 Intake Total 896 310 Output Total 350 Balance 546 310 Laboratory Tests 01/20/20 14:29 01/20/20 05:29 01/19/20 01/19/20 01/19/20 18:43 18:43 21:14 WBC 14.4 H RBC 2.74 L Hgb 8.6 L D Hct 26.1 L MCV 95.3 MCH 31.4 MCHC 33.0 RDW 13.8 Plt Count 174 MPV 10.0 Immature Gran % (Auto) 0.3 Neut % (Auto) 85.1 H Lymph % (Auto) 10.4 L [place] % (Auto) 4.0 Eos % (Auto) 0.1 Baso % (Auto) 0.1 L Lymph # (Auto) 1.50 [place] # (Auto) 0.6 Eos # (Auto) 0.0 Baso # (Auto) 0.0 Abs Immat Gran (auto) 0.05 H Absolute Neuts (auto) 12.2 H Absolute Nucleated RBC 0.0 Nucleated RBC % 0.0 % Immature Plt Fraction Sodium 133 L Potassium 4.3 Chloride 103 Carbon Dioxide 23 BUN 11 Creatinine 0.50 L Estim Creat Clear Calc 57 Estimated GFR > 60 Glucose 136 H Uric Acid 3.3 Calcium 8.5 Magnesium Total Bilirubin 0.5 AST 37 H ALT 18 Alkaline Phosphatase 55 Troponin I < 0.012 Total Protein 6.0 L Albumin 3.4 L Blood Type Antibody Screen Crossmatch 01/19/20 01/19/20 01/20/20 21:14 21:14 05:29 WBC RBC Hgb 8.2 L Hct 24.8 L MCV MCH MCHC RDW Plt Count MPV Immature Gran % (Auto) Neut % (Auto) Lymph % (Auto) [place] % (Auto) Eos % (Auto) Baso % (Auto) Lymph # (Auto) [place] # (Auto) Eos # (Auto) Baso # (Auto) Abs Immat Gran (auto) Absolute Neuts (auto) Absolute Nucleated RBC Nucleated RBC % % Immature Plt Fraction Sodium 131 L Potassium 4.1 4.5 Chloride 102 Carbon Dioxide 24 BUN 11 Creatinine 0.60 L Estim Creat Clear Calc 49 Estimated GFR > 60 Glucose 161 H Uric Acid Calcium 8.1 L Magnesium 1.6 Total Bilirubin AST ALT Alkaline Phosphatase Troponin I Total Protein Albumin Blood Type Antibody Screen Crossmatch 01/20/20 01/20/20 01/20/20 05:29 06:46 14:29 WBC 10.5 H RBC 2.10 L Hgb 6.7 L* 7.3 L Hct 20.5 L* 23.1 L MCV 97.6 MCH 31.9 MCHC 32.7 RDW 14.1 Plt Count 128 L MPV 10.4 Immature Gran % (Auto) 0.5 Neut % (Auto) 75.6 H Lymph % (Auto) 11.6 L [place] % (Auto) 12.2 H Eos % (Auto) 0.0 Baso % (Auto) 0.1 L Lymph # (Auto) 1.22 [place] # (Auto) 1.3 H Eos # (Auto) 0.0 Baso # (Auto) 0.0 Abs Immat Gran (auto) 0.05 H Absolute Neuts (auto) 8.0 H Absolute Nucleated RBC 0.0 Nucleated RBC % 0.0 % Immature Plt Fraction 2.5 Sodium Potassium Chloride Carbon Dioxide BUN Creatinine Estim Creat Clear Calc Estimated GFR Glucose Uric Acid Calcium Magnesium Total Bilirubin AST ALT Alkaline Phosphatase Troponin I Total Protein Albumin Blood Type A Positive Antibody Screen Negative Crossmatch See Detail Post-procedural complaints: none Patient Feedback: Patient satisfied with anesthetic care.
[2020-01-20] MEDS: KCL 20 MEQ/D5/0.45% SOD CHL 1,000 ML 60 ML IV CONT (17:35)
[2020-01-20] MEDS: MELATONIN 5 MG TABLET 10 MG PO (20:52)
[2020-01-20] MEDS: TEMAZEPAM 15 MG CAPSULE 30 MG PO (20:52)
[2020-01-20] MEDS: ASPIRIN 81 MG ENTERIC TABLET PO (20:52)
[2020-01-20] MEDS: SIMVASTATIN 20 MG TABLET PO (20:52)
[2020-01-20] MEDS: DULOXETINE HCL 30 MG CAPSULE.DR PO (20:53)
[2020-01-20 22:01] LABS: Hematocrit 21.8 % (37.0-47.0); Hemoglobin 7.2 g/dL (12.0-15.0)
[2020-01-21] VITALS (15 sets, daily range): BP systolic 104–127; BP diastolic 47–80; PULSE 67–115; RESP 14–18; TEMP 36.6–37.7; O2SAT 93–99
[2020-01-21 06:02] LABS: Hematocrit 21.9 % (37.0-47.0); Hemoglobin 7.1 g/dL (12.0-15.0); Mean Corpuscular HGB Conc 32.4 g/dl (32-36); Mean Corpuscular Hemoglobin 30.6 pg (26-34); Mean Corpuscular Volume 94.4 fl (80-100); Mean Platelet Volume 10.4 fl (7.4-10.4); Platelet Count Result 131 k/mm3 (150-375); Red Blood Count 2.32 M/mm3 (4.2-5.4)
[2020-01-21 07:23] LABS: Blood Urea Nitrogen 11 mg/dL (7-17); Calcium 7.8 mg/dL (8.4-10.2); Carbon Dioxide 28 mmol/L (22-30); Chloride 105 mmol/L (98-107); Estimated CRCL calculation 57 ml/min; Estimated Glomerular Filt Rate > 60; Glucose 111 mg/dL (65-105); Magnesium 1.9 mg/dL (1.6-2.3); Potassium 4.1 mmol/L (3.4-5.0); Sodium 135 mmol/L (137-145)
[2020-01-21] MEDS: FOLIC ACID 1 MG TABLET PO (08:14)
[2020-01-21] MEDS: ASCORBIC ACID 250 MG TABLET PO (08:14)
[2020-01-21] MEDS: DOCUSATE SODIUM 100 MG CAPSULE PO ×2 (08:15→17:18)
[2020-01-21] MEDS: SIMETHICONE 80 MG TAB.CHEW PO ×3 (08:15→21:03)
[2020-01-21] MEDS: NIACIN 100 MG TABLET PO (08:16)
[2020-01-21] MEDS: FONDAPARINUX SODIUM 2.5 MG/0.5 ML SYRINGE SUB-Q (08:16)
[2020-01-21] MEDS: FLUTICASONE PROPIONATE 0.05% NA SPR 16 GM BTL (*BKC) 1 SPRAY NASAL (08:16)
[2020-01-21] MEDS: FAMOTIDINE 20 MG TABLET PO ×2 (08:16→21:03)
[2020-01-21] MEDS: HYDROXYCHLOROQUINE SULFATE 200 MG TABLET PO (08:17)
[2020-01-21] MEDS: ALBUTEROL SULFATE (*SP) AEROSOL 1 PUFF 2 PUFF INHALATION (10:29)
[2020-01-21] MEDS: SODIUM CHLORIDE 0.9% IV 250 ML 30 ML IV CONT (10:41)
--- NOTE | 2020-01-21 13:10 | PM.IMPN ---
Progress Note: A&P Assessment and Plan (1) Severe anemia: Code(s): D64.9 - Anemia, unspecified Status: Acute Assessment and Plan: Most likely secondary to IV fluid dilution and surgery. Patients H&H on arrival was 12.7/38.7%. Surgery checked H&H post-op hip surgery and H&H was 8.6/26%. 01/20/2020: H&H was severely decreased with H&H at 6.7/20.5%. She received 1 Unit with improvement of H%H to 7.3/23.1% 01/21/2020: H&H was 7.1/21.9%. Will give her 2 more units to get her H&H back up closer to where she was on arrival. We will continue monitoring H&H and transfuse as needed. No acute signs of bleeding at this time. (2) Closed intertrochanteric fracture of left hip: Qualifiers: Encounter type: initial encounter Fracture alignment: displaced Qualified Code(s): S72.142A - Displaced intertrochanteric fracture of left femur, initial encounter for closed fracture Code(s): S72.142A - Displaced intertrochanteric fracture of left femur, initial encounter for closed fracture Status: Acute Assessment and Plan: Patient had a fall at home and was found to have a left intertrochanteric fracture. Patient was admitted and placed NPO overnight with IV pain medications and IV fluids. Dr. Chung preformed insertion of intramedullary felicity, left femur with hip screw on 01/19/2020. POD #2, patient is not in any pain at this time. Will continue monitoring patient's symptoms. Dr. Chung will monitor the patient's pain, DVT prophylaxis postop, physical and occupational therapy and discharge plan. (3) Depression: Qualifiers: Depression Type: unspecified Qualified Code(s): F32.9 - Major depressive disorder, single episode, unspecified Code(s): F32.9 - Major depressive disorder, single episode, unspecified Status: Chronic Assessment and Plan: Will continue her home medications. (4) GERD (gastroesophageal reflux disease): Qualifiers: Esophagitis presence: esophagitis presence not specified Qualified Code(s): K21.9 - Gastro-esophageal reflux disease without esophagitis Code(s): K21.9 - Gastro-esophageal reflux disease without esophagitis Status: Chronic Assessment and Plan: Pepcid twice a day while hospitalized. (5) Hypercholesteremia: Code(s): E78.00 - Pure hypercholesterolemia, unspecified Status: Chronic Assessment and Plan: Will continue her simvastatin. (6) Lupus: Code(s): M32.9 - Systemic lupus erythematosus, unspecified Status: Chronic Assessment and Plan: Stable. Will continue her hydroxychloroquine which he takes once a day. (7) Osteoporosis: Qualifiers: Osteoporosis type: unspecified Presence of current pathological fracture: unspecified Qualified Code(s): M81.0 - Age-related osteoporosis without current pathological fracture Code(s): M81.0 - Age-related osteoporosis without current pathological fracture Status: Chronic (8) Rheumatoid arthritis: Qualifiers: Rheumatoid arthritis location: unspecified site Rheumatoid factor presence: unspecified presence Qualified Code(s): M06.9 - Rheumatoid arthritis, unspecified Code(s): M06.9 - Rheumatoid arthritis, unspecified Status: Chronic Assessment and Plan: Continue home medications. Time Spent With Patient Time with patient: 25 - 35 minutes Subjective Date/time seen: 01/21/20 13:10 Interval history: Date of service 01/21/2020: She reports feeling better today. Pod #2, denies any left hip pain at this time. Her indigestion has improved. She is eating and drin
--- NOTE | 2020-01-21 13:52 | PM.PNORT ---
Progress Note: A&P Additional Plan POD 2 IMPROVING. CONTINUE PT. TRC WHEN STABLE Subjective Subjective Date/Time Seen: 01/21/20 13:52POD 2 DOING WELL. ON HER 2ND UNIT OF PRBC. 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[place] INTACT NEG HOMANS SIGN Objective Data Vital Signs Vital Signs: Vital Signs - 24 hr 01/20/20 14:00 01/20/20 22:00 01/21/20 06:00 Temperature 36.6 C 36.8 C 37.2 C Pulse Rate 83 72 115 H Respiratory Rate 18 18 18 Blood Pressure 108/53 L 107/53 L 117/54 L Pulse Oximetry 96 88 L 99 01/21/20 07:56 01/21/20 10:31 01/21/20 10:47 Temperature 36.6 C 37.2 C Pulse Rate 98 88 87 Respiratory Rate 16 18 16 Blood Pressure 104/54 L 116/54 L Pulse Oximetry 96 99 95 01/21/20 11:47 01/21/20 12:47 01/21/20 13:03 Temperature 36.8 C 37.1 C 37.2 C Pulse Rate 92 90 89 Respiratory Rate 14 14 16 Blood Pressure 112/52 L 119/55 L 106/47 L Pulse Oximetry 97 98 95 01/21/20 13:09 01/21/20 13:24 Temperature 37.2 C 36.9 C Pulse Rate 89 99 Respiratory Rate 16 14 Blood Pressure 106/47 L 127/80 Pulse Oximetry 95 97 Intake/Output Intake/Output: Intake & Output 01/18/20 01/19/20 01/20/20 01/21/20 23:59 23:59 23:59 23:59 Intake Total 3150 3650 2315 Output Total 1100 1950 2425 Balance 2050 1700 -110 Meds/Results Medications: Active Medications Generic Name Dose Route Start Last Admin Trade Name Freq PRN Reason Stop Dose Admin Hydrocodone Bitart/Acetaminophen 1 tab 01/19/20 15:58 01/21/20 08:13 [place] 7.5-325 Mg PO 1 tab Q3H PRN Administration Pain Rated 4-6 Albuterol 2 puff 01/20/20 13:57 01/21/20 10:29 Proventil Hfa INHALATION 2 puff QIDRT PRN Administration Shortness Of Breath Or Wheezing Ascorbic Acid 250 mg 01/20/20 09:00 01/21/20 08:14 Vitamin C PO 02/19/20 09:01 250 mg DAILY JOEY Administration Aspirin 81 mg 01/20/20 21:00 01/20/20 20:52 Aspirin Ec PO 81 mg HS JOEY Administration Calcium Citrate 2 tablet 01/20/20 12:00 01/20/20 12:29 Calcitrate + Vit D Caplet PO 2 tablet DAILY@1200 JOEY Administration Cholestyramine Resin 4 gm 01/19/20 17:00 01/21/20 08:19 Questran Powder Packs PO Not Given TID JOEY Diazepam 5 mg 01/19/20 15:58 Valium Po PO Q8H PRN Muscle Spasm Docusate Sodium 100 mg 01/19/20 17:00 01/21/20 08:15 Colace Capsule PO 100 mg BID JOEY Administration Duloxetine HCl 30 mg 01/20/20 21:00 01/20/20 20:53 Cymbalta PO 30 mg HS JOEY Administration Famotidine 20 mg 01/19/20 21:00 01/21/20 08:16 Pepcid PO 20 mg Q12HR JOEY Administration Fluticasone Propionate 1 spray 01/20/20 09:00 01/21/20 08:16 Flonase 0.05% Nasal [place] NASAL 1 spray DAILY JOEY Administration Folic Acid 1 mg 01/20/20 09:00 01/21/20 08:14 Folic Acid PO 02/19/20 09:01 1 mg DAILY JOEY Administration Fondaparinux 2.5 mg 01/20/20 09:00 01/21/20 08:16 Arixtra SUB-Q 2.5 mg DAILY JOEY Administration Hydromorphone HCl 0.5 mg 01/19/20 10:30 01/19/20 20:26 Dilaudid Inj IV PUSH 0.5 mg Q3H PRN Administration Pain Rated 7-10 Hydroxychloroquine Sulfate 200 mg 01/20/20 09:00 01/21/20 08:17 Plaquenil Tab PO 200 mg DAILY JOEY Administration Sodium Chloride 250 mls @ 30 mls/hr 01/21/20 08:36 01/21/20 10:41 Normal Saline Iv IV CONT 01/21/20 16:55 30 mls/hr .Q8H20M STA Administration Magnesium Hydroxide 30 ml 01/19/20 15:58 Milk Of Magnesia PO BID PRN Constipation Magnesium Oxide 200 mg 01/20/20 12:00 01/20/20 12:29 Mag-Ox PO 200 mg NOON JOEY Administration Melatonin 10 mg 01/19/20 21:00 01/20/20 20:52 Melatonin PO 10 mg HS JOEY Administration Morphine Sulfate 3 mg 01/19/20 15:58 Morphine Sulfate Inj IV PUSH Q3H PRN Pain Rated 7-10 Naloxone HCl 0.1 mg 01/19/20 15:58 Narcan IV PUSH Q2M PRN Opiate Reversal Niacin 100 mg 01/20/20 09:00 12/24
[2020-01-21] MEDS: MAGNESIUM OXIDE 200 MG TABLET PO (15:48)
[2020-01-21 16:59] LABS: Hematocrit 30.3 % (37.0-47.0); Hemoglobin 10.1 g/dL (12.0-15.0)
[2020-01-21] MEDS: ASPIRIN 81 MG ENTERIC TABLET PO (21:02)
[2020-01-21] MEDS: MELATONIN 5 MG TABLET 10 MG PO (21:03)
[2020-01-21] MEDS: TEMAZEPAM 15 MG CAPSULE 30 MG PO (21:03)
[2020-01-21] MEDS: DULOXETINE HCL 30 MG CAPSULE.DR PO (21:03)
[2020-01-21] MEDS: SIMVASTATIN 20 MG TABLET PO (21:03)
[2020-01-22] MEDS: QUEtiapine FUMARATE 25 MG TABLET PO (02:02)
[2020-01-22 06:00] VITALS: BP 103/51; PULSE 96; RESP 16; TEMP 36.8; O2SAT 95
[2020-01-22 06:04] LABS: Hematocrit 30.2 % (37.0-47.0); Mean Corpuscular HGB Conc 33.1 g/dl (32-36); Mean Corpuscular Hemoglobin 31.2 pg (26-34); Mean Corpuscular Volume 94.1 fl (80-100); Mean Platelet Volume 10.3 fl (7.4-10.4); Platelet Count Result 124 k/mm3 (150-375); Red Blood Count 3.21 M/mm3 (4.2-5.4); Red Cell Distribution Width 14.8 % (11.5-14.5); White Blood Count 9.9 K/mm3 (4.5-10.0)
[2020-01-22 06:11] LABS: Blood Urea Nitrogen 8 mg/dL (7-17); Calcium 7.9 mg/dL (8.4-10.2); Carbon Dioxide 27 mmol/L (22-30); Chloride 103 mmol/L (98-107); Estimated CRCL calculation 70 ml/min; Estimated Glomerular Filt Rate > 60; Glucose 96 mg/dL (65-105); Magnesium 1.8 mg/dL (1.6-2.3); Sodium 133 mmol/L (137-145)
[2020-01-22] MEDS: FOLIC ACID 1 MG TABLET PO (08:50)
[2020-01-22] MEDS: SIMETHICONE 80 MG TAB.CHEW PO ×3 (08:51→18:12)
[2020-01-22] MEDS: NIACIN 100 MG TABLET PO (08:51)
[2020-01-22] MEDS: FONDAPARINUX SODIUM 2.5 MG/0.5 ML SYRINGE SUB-Q (08:51)
[2020-01-22] MEDS: ASCORBIC ACID 250 MG TABLET PO (08:51)
[2020-01-22] MEDS: FAMOTIDINE 20 MG TABLET PO (08:51)
[2020-01-22] MEDS: DOCUSATE SODIUM 100 MG CAPSULE PO ×2 (08:51→18:12)
[2020-01-22] MEDS: HYDROXYCHLOROQUINE SULFATE 200 MG TABLET PO (08:52)
[2020-01-22] MEDS: FLUTICASONE PROPIONATE 0.05% NA SPR 16 GM BTL (*BKC) 1 SPRAY NASAL (08:52)
[2020-01-22 14:00] VITALS: BP 103/53; PULSE 98; RESP 16; TEMP 36.7; O2SAT 90
[2020-01-22] MEDS: MAGNESIUM OXIDE 200 MG TABLET PO (14:40)
--- NOTE | 2020-01-22 15:20 | PM.DS ---
DS: Diagnosis Admitting Diagnosis Admitting Diagnosis: Displaced intertrochanteric fracture of left femur, initial encounter for closed fracture Discharge Diagnosis (1) Severe anemia: Code(s): D64.9 - Anemia, unspecified Status: Acute Assessment and Plan: Most likely secondary to IV fluid dilution and surgery. Patients H&H on arrival was 12.7/38.7%. Surgery checked H&H post-op hip surgery and H&H was 8.6/26%. 01/20/2020: H&H was severely decreased with H&H at 6.7/20.5%. She received 1 Unit with improvement of H%H to 7.3/23.1% 01/21/2020: H&H was 7.1/21.9%. Will give her 2 more units to get her H&H back up closer to where she was on arrival. 01/22/2020: H&H was 10/30.2%. Much improved after transfusion. No acute signs of bleeding at this time. (2) Closed intertrochanteric fracture of left hip: Qualifiers: Encounter type: initial encounter Fracture alignment: displaced Qualified Code(s): S72.142A - Displaced intertrochanteric fracture of left femur, initial encounter for closed fracture Code(s): S72.142A - Displaced intertrochanteric fracture of left femur, initial encounter for closed fracture Status: Acute Assessment and Plan: Patient had a fall at home and was found to have a left intertrochanteric fracture. Patient was admitted and placed NPO overnight with IV pain medications and IV fluids. Dr. Chung preformed insertion of intramedullary felicity, left femur with hip screw on 01/19/2020. POD #3, patient is feeling well. She reports feeling stronger today and believes she is doing well with therapy. She was accepted into [facility] for continued PT/OT. (3) Depression: Qualifiers: Depression Type: unspecified Qualified Code(s): F32.9 - Major depressive disorder, single episode, unspecified Code(s): F32.9 - Major depressive disorder, single episode, unspecified Status: Chronic Assessment and Plan: Will continue her home medications. (4) GERD (gastroesophageal reflux disease): Qualifiers: Esophagitis presence: esophagitis presence not specified Qualified Code(s): K21.9 - Gastro-esophageal reflux disease without esophagitis Code(s): K21.9 - Gastro-esophageal reflux disease without esophagitis Status: Chronic Assessment and Plan: Pepcid twice a day while hospitalized. (5) Hypercholesteremia: Code(s): E78.00 - Pure hypercholesterolemia, unspecified Status: Chronic Assessment and Plan: Will continue her simvastatin. (6) Lupus: Code(s): M32.9 - Systemic lupus erythematosus, unspecified Status: Chronic Assessment and Plan: Stable. Will continue her hydroxychloroquine which she takes once a day. (7) Osteoporosis: Qualifiers: Osteoporosis type: unspecified Presence of current pathological fracture: unspecified Qualified Code(s): M81.0 - Age-related osteoporosis without current pathological fracture Code(s): M81.0 - Age-related osteoporosis without current pathological fracture Status: Chronic (8) Rheumatoid arthritis: Qualifiers: Rheumatoid arthritis location: unspecified site Rheumatoid factor presence: unspecified presence Qualified Code(s): M06.9 - Rheumatoid arthritis, unspecified Code(s): M06.9 - Rheumatoid arthritis, unspecified Status: Chronic Assessment and Plan: Continue home medications. DS: Summary Hospital Course Reason for hospitalization: The patient is an 84-year-old woman with a history of rheumatoid arthritis, who presented to the emergency department wi
--- NOTE | 2020-01-22 15:38 | PM.PNORT ---
Progress Note: A&P Additional Plan POD 3 DOING WELL. OK WITH TRANSFER TO [facility]. F/U IN 8 WEEKS Subjective Subjective Date/Time Seen: 01/22/20 15:38 POD 3 DOING WELL. IMPROVING. 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[place] INTACT NEG [employer] SIGN Objective Data Vital Signs Vital Signs: Vital Signs - 24 hr 01/21/20 16:24 01/21/20 18:51 01/21/20 22:00 Temperature 37.4 C 36.8 C 37.2 C Pulse Rate 90 97 Respiratory Rate 16 16 Blood Pressure 111/47 L 109/53 L Pulse Oximetry 96 93 01/22/20 06:00 Temperature 36.8 C Pulse Rate 96 Respiratory Rate 16 Blood Pressure 103/51 L Pulse Oximetry 95 Intake/Output Intake/Output: Intake & Output 01/19/20 01/20/20 01/21/20 01/22/20 23:59 23:59 23:59 23:59 Intake Total 3150 3650 3455 470 Output Total 1100 1950 3225 1400 Balance 2050 1700 230 -930 Meds/Results Medications: Active Medications Generic Name Dose Route Start Last Admin Trade Name Freq PRN Reason Stop Dose Admin Hydrocodone Bitart/Acetaminophen 1 tab 01/19/20 15:58 01/22/20 08:50 Marion 7.5-325 Mg PO 1 tab Q3H PRN Administration Pain Rated 4-6 Albuterol 2 puff 01/20/20 13:57 01/21/20 10:29 Proventil Hfa INHALATION 2 puff QIDRT PRN Administration Shortness Of Breath Or Wheezing Ascorbic Acid 250 mg 01/20/20 09:00 01/22/20 08:51 Vitamin C PO 02/19/20 09:01 250 mg DAILY JOEY Administration Aspirin 81 mg 01/20/20 21:00 01/21/20 21:02 Aspirin Ec PO 81 mg HS JOEY Administration Calcium Citrate 2 tablet 01/20/20 12:00 01/22/20 14:40 Calcitrate + Vit D Caplet PO 2 tablet DAILY@1200 JOEY Administration Cholestyramine Resin 4 gm 01/19/20 17:00 01/22/20 12:22 Questran Powder Packs PO Not Given TID JOEY Diazepam 5 mg 01/19/20 15:58 Valium Po PO Q8H PRN Muscle Spasm Docusate Sodium 100 mg 01/19/20 17:00 01/22/20 08:51 Colace Capsule PO 100 mg BID JOEY Administration Duloxetine HCl 30 mg 01/20/20 21:00 01/21/20 21:03 Cymbalta PO 30 mg HS JOEY Administration Famotidine 20 mg 01/19/20 21:00 01/22/20 08:51 Pepcid PO 20 mg Q12HR JOEY Administration Fluticasone Propionate 1 spray 01/20/20 09:00 01/22/20 08:52 Flonase 0.05% Nasal [place] NASAL 1 spray DAILY [facility] Administration Folic Acid 1 mg 01/20/20 09:00 01/22/20 08:50 Folic Acid PO 02/19/20 09:01 1 mg DAILY JOEY Administration Fondaparinux 2.5 mg 01/20/20 09:00 01/22/20 08:51 Arixtra SUB-Q 2.5 mg DAILY [facility] Administration Hydromorphone HCl 0.5 mg 01/19/20 10:30 01/19/20 20:26 Dilaudid Inj IV PUSH 0.5 mg Q3H PRN Administration Pain Rated 7-10 Hydroxychloroquine Sulfate 200 mg 01/20/20 09:00 01/22/20 08:52 Plaquenil Tab PO 200 mg DAILY [facility] Administration Magnesium Hydroxide 30 ml 01/19/20 15:58 Milk Of Magnesia PO BID PRN Constipation Magnesium Oxide 200 mg 01/20/20 12:00 01/22/20 14:40 Mag-Ox PO 200 mg NOON [facility] Administration Melatonin 10 mg 01/19/20 21:00 01/21/20 21:03 Melatonin PO 10 mg HS [facility] Administration Morphine Sulfate 3 mg 01/19/20 15:58 Morphine Sulfate Inj IV PUSH Q3H PRN Pain Rated 7-10 Naloxone HCl 0.1 mg 01/19/20 15:58 Narcan IV PUSH Q2M PRN Opiate Reversal Niacin 100 mg 01/20/20 09:00 01/22/20 08:51 Niacin PO 100 mg DAILY JOEY Administration Non-Formulary Medication 10 mg 01/20/20 09:00 Chelated Manganese PO 02/19/20 09:01 DAILY [facility] Non-Formulary Medication 200 mcg 01/20/20 09:00 Chromium PO 02/19/20 09:01 DAILY [facility] Non-Formulary Medication 100 mg 01/20/20 09:00 Glucosamine Chondroitin PO 02/19/20 09:01 DAILY [facility] Non-Formulary Medication 500 cap 01/20/20 09:00 Turmeric-Turmeric Root Extract PO 02/19/20 09:01 DAILY [facility] Ondansetron HCl 4 mg 01/19/20 00:02 Zofran Inj IV PUSH Q4H PRN Nause
== END 2020-01-22 19:00 | DRG 481 ==
LOC: ANHED 01-19 00:08 → ANH3MEDSUR 01-19 00:25
PROVIDERS: Orthopaedic Surgery; Physician Assistant; Admitting Provider Family Medicine; Emergency Provider Emergency Medicine; PCP Physician Assistant; Visit Provider Internal Medicine
PROC: 0QSC36Z Reposition Left Lower Femur with Intramedullary Internal Fixation Device, Percutaneous Approach (ICD-10-PCS; CPT 27245; principal; 2020-01-19 14:30)
DX: S72.142A Displaced intertrochanteric fracture of left femur, initial encounter for closed fracture (principal); D62 Acute posthemorrhagic anemia; E87.1 Hypo-osmolality and hyponatremia; K21.9 Gastro-esophageal reflux disease without esophagitis; M32.9 Systemic lupus erythematosus, unspecified; M06.9 Rheumatoid arthritis, unspecified; M19.90 Unspecified osteoarthritis, unspecified site; F41.8 Other specified anxiety disorders; K58.9 Irritable bowel syndrome, unspecified; M81.0 Age-related osteoporosis without current pathological fracture; E78.00 Pure hypercholesterolemia, unspecified; H26.9 Unspecified cataract; Z96.641 Presence of right artificial hip joint; W01.0XXA Fall on same level from slipping, tripping and stumbling without subsequent striking against object, initial encounter
CPT/HCPCS: 36415; 36430; 71045; 73502; 80048; 80053; 83735; 84132; 84484; 84550; 85014; 85018; 85025; 85027; 85055; 85610; 85730; 86850; 86900; 86901; 86923; 93005; 94640; 96361; 96374; 96376; 97110; 97116; 97161; 97165; 97530; 97535; 99285; A9270; C1713; C1769; J0131; J0690; J1170; J1652; J3010; J3475; J3480; J7040; J7050; J7120; P9016

== ENCOUNTER → 2020-04-08 16:19 | Outpatient (CLI) | payer OTHER, SELFPAY ==
--- NOTE | ~2020-04-08 | XR_ITS ---
EXAMINATION: XR foot LT standing 2V DATE: 04/08/2020 17:01 INDICATION: Other organ or system involvement of systemic lupus erythematosus. TECHNIQUE: 2 views of left foot standing were obtained. COMPARISON: None. FINDINGS: There is moderate hallux valgus. No fracture. There is severe osteoarthritis of second tars ometatarsal joint and moderate osteoarthritis of first metatarsophalangeal joint. There is osteoarthr itis of most of the interphalangeal joints, severe at second and third distal interphalangeal joints and fifth proximal interphalangeal joint. There are enthesophytes at the posterior and plantar aspect s of calcaneal tuberosity. IMPRESSION: 1. Polyarticular osteoarthritis. 2. Moderate hallux valgus. Reviewed, dictated and finalized at location A.
--- NOTE | ~2020-04-08 | XR_ITS ---
EXAMINATION: XR foot RT standing 2V DATE: 04/08/2020 17:01 INDICATION: Other organ or system involvement in systemic lupus erythematosus. TECHNIQUE: 2 views of right foot were obtained. COMPARISON: None. FINDINGS: There is moderate hallux valgus. There is an old healed fracture of neck of fifth metatarsa l. There is plate and screw fixation of distal fibula. There are 2 lag screws in medial malleolus. Th ere is severe osteoarthritis of tibiotalar joint. There is moderate osteoarthritis of first metatarso phalangeal joint and mild osteoarthritis of some of the interphalangeal joints and midfoot joints. IMPRESSION: 1. Polyarticular osteoarthritis. 2. Moderate hallux valgus. Reviewed, dictated and finalized at location A.
--- NOTE | ~2020-04-08 | XR_ITS ---
EXAMINATION: XR hand BI arthritis min 3V DATE: 04/08/2020 17:01 INDICATION: Unspecified osteoarthritis, unspecified site. TECHNIQUE: 4 views of right hand and 4 views of left hand on 7 radiographs were obtained. COMPARISON: Bilateral hand radiographs 02/13/2019 FINDINGS: RIGHT HAND: There is ulnar angulation of second distal phalanx with respect to the middle phalanx. Th ere is radial subluxation of first distal phalanx with respect to the proximal phalanx. There is palm ar subluxation of second and third proximal phalanges with respect to the metacarpals. There is sever e osteoarthritis of the radiocarpal joint with bone volume loss of distal radius and ulna and proxima l scaphoid and lunate. There is severe osteoarthritis of first carpometacarpal joint, second and thir d metacarpophalangeal joints, first interphalangeal joint, second distal interphalangeal joint, third proximal and distal interphalangeal joints, fourth proximal and distal interphalangeal joints, and f ifth proximal interphalangeal joint. There is mild osteoarthritis of the other metacarpophalangeal luis angel ints and interphalangeal joints. LEFT HAND: There is palmar subluxation of second and third proximal phalanges with respect to the met acarpals. There is radial subluxation of third distal phalanx with respect to the middle phalanx. No fracture. There is severe osteoarthritis of distal radioulnar joint. There is sclerosis of proximal l unate, consistent with ulnolunate impaction syndrome. There is moderate osteoarthritis of triscaphe j oint and severe osteoarthritis of first carpometacarpal joint. There is severe osteoarthritis of seco nd and third metacarpophalangeal joints, first interphalangeal joint, and second and third distal int erphalangeal joints. There is mild to moderate osteoarthritis of the other interphalangeal joints. IMPRESSION: 1. Polyarticular osteoarthritis. Reviewed, dictated and finalized at location A.
== END ==
PROVIDERS: PCP Physician Assistant; Visit Provider Internal Medicine
DX: M32.19 Other organ or system involvement in systemic lupus erythematosus (principal); M19.041 Primary osteoarthritis, right hand; M19.071 Primary osteoarthritis, right ankle and foot; M20.11 Hallux valgus (acquired), right foot; M19.072 Primary osteoarthritis, left ankle and foot; M20.12 Hallux valgus (acquired), left foot
CPT/HCPCS: 73130; 73620

== ENCOUNTER 2020-04-19 13:17 | Outpatient (CLI) | payer OTHER, SELFPAY ==
--- NOTE | ~2020-04-19 | DEXA_ITS ---
Bone Density Report Name: Sherri Montes Age: 84 Sex: Female Ethnicity: White Date of : 1935 Indication: postmenopausal; height loss; prior fracture; cancer; rheumatoid arthritis; Referring Provider: LAUREL, SATISH Study: Bone densitometry was performed. Exam Date: April 19, 2020 Accession number: [id number] Bone Density: Region BMD T-score Z-score Classification AP Spine (L1, L2, L3) 0.783 -2.1 0.6 Osteopenia World Health Organization criteria for BMD impression classify patients as: Normal (T-score at or above -1.0), Osteopenia (T-score between -1.0 and -2.5), or Osteoporosis (T-score at or below -2.5). Clinical Information Provided by Patient: Have had a previous hip or vertebral fracture Has had a low trauma fracture Has rheumatoid arthritis Has used the following medications: Vitamin D, Calcium Has the following medical conditions: Cancer Patient maximum height was 62 Menopause Age: 47 No regular weight bearing exercise Onset of menses at age 14 Number of children 6 Impression: The patient has low bone mass, based on the Total Spine T-score. The patient has risk factors, including: previous fracture. Discussion: INCREASED RISK OF FRACTURE DUE TO HISTORY OF FRACTURE. The patient's previous fracture puts the patient at high risk of a future fracture. In untreated patients, the risk of osteoporotic fracture increases approximately two-fold for each 1.0 SD decrease in T-score. Low bone density is not the only risk factor for fracture; also consider factors such as patient's age, frailty or poor health, risk of falling, risk of injury, previous osteoporotic fracture, family history of osteoporosis, cigarette smoking, low body weight, etc. Not everyone with a low trauma fracture has osteoporosis; osteomalacia and other metabolic bone disorders should also be considered. Patients who have osteoporosis should be evaluated for specific diseases and conditions (secondary causes) that may cause or contribute to bone loss and fracture risk. National Osteoporosis Foundation (NOF) recommends pharmacologic intervention for patients with a prior hip or vertebral fracture regardless of BMD T-score. The patient should follow a healthful lifestyle (good nutrition with adequate calcium and vitamin D, and appropriate weight-bearing exercise). Follow-Up: Consider a repeat BMD and Vertebral Fracture Assessment (VFA) exam in 2 years or sooner if medically necessary, to reassess this patient's status. Reported by: ANNA on 04/19/2020 3:09:00 PM. Reviewed, dictated and finalized at location Tamy THOMPSON
== END 2020-04-19 13:18 | disposition home or self-care (01) ==
PROVIDERS: PCP Physician Assistant; Visit Provider Physician Assistant
DX: Z78.0 Asymptomatic menopausal state (principal); M85.88 Other specified disorders of bone density and structure, other site
CPT/HCPCS: 77080

== ENCOUNTER 2020-06-16 09:09 | Outpatient (CLI) | payer OTHER, SELFPAY | END 2020-06-16 09:10 | disposition home or self-care (01) | LOC: ANHAUDIO 09:11 | PROVIDERS: PCP Family Medicine; Visit Provider Physician Assistant | DX: H90.6 Mixed conductive and sensorineural hearing loss, bilateral (principal) | CPT/HCPCS: 92557; 92567 ==